=== PATIENT | female | born 1960 | race Caucasian/White ===

== ENCOUNTER 2023-10-30 05:48 | Inpatient (IN) ==
[2023-10-30 07:05] LABS: ABS Basophils 0.1 10^3/uL (0.0-0.1); ABS Lymphocytes 2.5 10^3/uL (1.0-4.8); ABS Monocytes 0.6 10^3/uL (0.0-0.9); ABS Nucleated RBC 0.01 10^3/ul; Eosinophil % 0.4 %; Hematocrit 41.5 % (35-45); Hemoglobin 14.2 g/dL (11.5-14.3); Lymphocyte % 22.7 %; Mean Corpuscular Hemoglobin 29.8 pg (27-33); Mean Corpuscular Hgb Conc 34.2 g/dL (31-36); Mean Corpuscular Volume 87.1 fL (80-97); Mean Platelet Volume 8.9 fL (7.5-11.2); Platelet Count 234 10^3/uL (150-450); Red Blood Count 4.76 10^6/uL (3.63-4.92); White Blood Count 11.2 10^3/uL (3.8-11.8)
[2023-10-30 08:05] LABS: Albumin 3.9 g/dL (3.2-5.2); Albumin/Globulin Ratio 1.4 (1-3); Calcium 9.1 mg/dL (8.6-10.3); Creatinine, Serum 0.92 mg/dL (0.51-0.95); Globulin 2.7 g/dL (2-4); Potassium 4.5 mmol/L (3.5-5.0); Total Bilirubin 0.4 mg/dL (0.2-1.0); Total Protein 6.6 g/dL (6.4-8.9); eGFR CKD-EPI 70.8 (>60)
[2023-10-30 08:08] LABS: ABS Basophils 0.2 10^3/uL (0.0-0.1); ABS Eosinophils 0.1 10^3/uL (0.0-0.5); ABS Lymphocytes 3.4 10^3/uL (1.0-4.8); ABS Monocytes 0.8 10^3/uL (0.0-0.9); ABS Neutrophils 8.3 10^3/uL (1.5-7.6); Eosinophil % 0.5 %; Hematocrit 43.7 % (35-45); Hemoglobin 14.9 g/dL (11.5-14.3); Lymphocyte % 26.6 %; Mean Corpuscular Hemoglobin 29.7 pg (27-33); Mean Corpuscular Hgb Conc 34.2 g/dL (31-36); Mean Platelet Volume 8.8 fL (7.5-11.2); Platelet Count 247 10^3/uL (150-450); Red Blood Count 5.03 10^6/uL (3.63-4.92); Red Cell Distribution Width 14.2 % (12-17); White Blood Count 12.8 10^3/uL (3.8-11.8)
[2023-10-30] MEDS: Heparin DRIP 25,000 UNITS BAG 25,000 UNITS/250 ML BAG IV SCH (08:08)
[2023-10-30] MEDS: Heparin 5000 UNITS/ML 1 mL VIAL IV SCH (08:10)
[2023-10-30 08:35] LABS: High Sensitivity Troponin 1 Hr 6603 pg/mL (<15)
[2023-10-30 08:59] LABS: Creatinine, Serum 0.86 mg/dL (0.51-0.95); eGFR CKD-EPI 76.8 (>60)
[2023-10-30 09:21] LABS: C Reactive Protein 24.06 mg/L (<8.01)
[2023-10-30] MEDS: Nitro 2% OINT (Nitroglycerin) 1 INCH/PAK TOPICAL ONE (09:53)
[2023-10-30] MEDS ORDERED: Sulfur Hexaflouride MICROSPHR 25 MG VIAL ONE (10:06)
[2023-10-30 10:17] LABS: Erythrocyte Sed Rate 20 mm/Hr (0-29)
[2023-10-30] MEDS ORDERED: Dextrose 50% Syringe 50 ml 25 GM/50 ML SYRINGE IV PUSH PRN ×3 (10:26→17:38)
[2023-10-30] MEDS ORDERED: Heparin 2 UNITS/ML 1000 mls 3,000 ML IV ONE (10:32)
[2023-10-30] MEDS ORDERED: Lidocaine 1% MPF 5 ML VIAL ONE ×2 (10:32→10:41)
[2023-10-30] MEDS ORDERED: Iohexol 350 (CONTRAST) 200 ML MDV IV ONE (10:32)
[2023-10-30] MEDS ORDERED: nitroGLYCERIN DRIP 25,000 MCG/250 ML BTL ONE (10:33)
[2023-10-30] MEDS ORDERED: niCARdipine 0.1MG/ML IVPREMIX 20 MG/200 ML BAG IV ONE (10:33)
[2023-10-30] MEDS ORDERED: Naloxone 0.4 mg VIAL 0.4 mg/ml 1 ml VIAL IV PUSH PRN (10:48)
[2023-10-30] MEDS ORDERED: Flumazenil 0.5 mg/5 ml 0.1 MG/ML 5 ml VIAL IV PRN (10:48)
[2023-10-30] MEDS ORDERED: fentaNYL 100 mcg/2 ml 50 MCG/ML VIAL ONE ×2 (11:03→11:36)
[2023-10-30] MEDS ORDERED: Midazolam 5 mg/5 ml VIAL 1 mg/ml 5 ml VIAL (5 mg) ONE (11:03)
[2023-10-30] MEDS ORDERED: Heparin 1,000 UNIT/ML 10 ml (10,000 UNITS) CATHLAB/DIALYSIS ONE (11:11)
[2023-10-30] MEDS ORDERED: Eptifibatide IV (Load dose) 2 MG/ML 10 ml VIAL ONE ×2 (11:51→12:09)
[2023-10-30] MEDS ORDERED: Iohexol 350 (CONTRAST) 100 ML PAK IV ONE ×2 (11:59→12:46)
[2023-10-30] MEDS: NS 0.9% 1000 ml BAG 1,000 ML IV SCH (13:55)
[2023-10-30] MEDS: fentaNYL 100 mcg/2 ml 50 MCG/ML VIAL IV SLOW PU ONE (14:54)
[2023-10-30] MEDS: Midazolam 10 mg/10 ml VIAL 1 mg/ml 10 ml VIAL (10 mg) IV SLOW PU ONE (14:54)
[2023-10-30] MEDS: Ondansetron 4 mg VIAL 2 MG/ML 2 ml VIAL IV PRN (19:56)
[2023-10-30] MEDS: diazePAM INJ CARPUJECT 5 MG/ML SYRINGE ONE (21:39)
[2023-10-31 04:47] LABS: ABS Basophils 0.1 10^3/uL (0.0-0.1); ABS Lymphocytes 2.6 10^3/uL (1.0-4.8); ABS Monocytes 0.9 10^3/uL (0.0-0.9); ABS Neutrophils 9.2 10^3/uL (1.5-7.6); ABS Nucleated RBC 0.01 10^3/ul; Eosinophil % 0.3 %; Hematocrit 39.5 % (35-45); Hemoglobin 13.5 g/dL (11.5-14.3); Mean Corpuscular Hemoglobin 29.7 pg (27-33); Mean Corpuscular Hgb Conc 34.1 g/dL (31-36); Mean Corpuscular Volume 87.1 fL (80-97); Mean Platelet Volume 8.8 fL (7.5-11.2); Platelet Count 243 10^3/uL (150-450); Red Blood Count 4.54 10^6/uL (3.63-4.92); Red Cell Distribution Width 14.1 % (12-17); White Blood Count 12.9 10^3/uL (3.8-11.8)
[2023-10-31 05:15] LABS: Albumin 3.7 g/dL (3.2-5.2); Albumin/Globulin Ratio 1.4 (1-3); Calcium 9.2 mg/dL (8.6-10.3); Creatinine, Serum 0.85 mg/dL (0.51-0.95); Globulin 2.6 g/dL (2-4); HDL Cholesterol 42.9 mg/dL; Magnesium 1.6 mg/dL (1.9-2.7); Phosphorus 5.5 mg/dL (2.5-5.0); Potassium 4.4 mmol/L (3.5-5.0); Total Protein 6.3 g/dL (6.4-8.9); eGFR CKD-EPI 77.9 (>60)
[2023-10-31] MEDS: Magnesium Sulfate 2 gm BAG 2 GM/50 ML BAG IVPB ONE ×2 (05:30→09:18)
[2023-10-31] MEDS: Magnesium Sulfate 2 gm BAG 2 GM/50 ML BAG ONE (05:32)
[2023-10-31 05:37] LABS: Total Bilirubin 0.9 mg/dL (0.2-1.0)
[2023-10-31] MEDS: Magnesium Sulf 4 GM/100 ML IV 4,000 MG/100 ML BAG IVPB ONE (08:35)
[2023-10-31] MEDS: Empagliflozin 25 MG TAB PO SCH (08:51)
[2023-10-31 10:09] LABS: Ferritin 150.5 ng/mL (11-307)
[2023-11-01 06:05] LABS: Albumin 3.6 g/dL (3.2-5.2); Albumin/Globulin Ratio 1.3 (1-3); Calcium 8.7 mg/dL (8.6-10.3); Creatinine, Serum 0.73 mg/dL (0.51-0.95); Globulin 2.7 g/dL (2-4); Phosphorus 4.4 mg/dL (2.5-5.0); Potassium 4.4 mmol/L (3.5-5.0); Total Bilirubin 0.8 mg/dL (0.2-1.0); Total Protein 6.3 g/dL (6.4-8.9); eGFR CKD-EPI 93.5 (>60)
[2023-11-01 07:02] LABS: ABS Eosinophils 0.1 10^3/uL (0.0-0.5); ABS Lymphocytes 2.2 10^3/uL (1.0-4.8); ABS Monocytes 0.6 10^3/uL (0.0-0.9); ABS Neutrophils 6.8 10^3/uL (1.5-7.6); ABS Nucleated RBC 0.01 10^3/ul; Hemoglobin 14.2 g/dL (11.5-14.3); Lymphocyte % 22.6 %; Mean Corpuscular Hemoglobin 29.6 pg (27-33); Mean Corpuscular Hgb Conc 33.8 g/dL (31-36); Mean Corpuscular Volume 87.6 fL (80-97); Mean Platelet Volume 9.4 fL (7.5-11.2); Nucleated Red Blood Cells % 0.1 %/100WBC (0.0-0.8); Platelet Count 242 10^3/uL (150-450); Red Cell Distribution Width 13.9 % (12-17); White Blood Count 9.7 10^3/uL (3.8-11.8)
[2023-11-01] MEDS: Enoxaparin 40 MG/0.4 ML SYR SUBCUT SCH (08:46)
[2023-11-01] MEDS ORDERED: Dextrose 50% Syringe 50 ml 25 GM/50 ML SYRINGE IV PUSH PRN ×2 (12:44→12:45)
[2023-11-02 04:49] LABS: ABS Basophils 0.1 10^3/uL (0.0-0.1); ABS Eosinophils 0.2 10^3/uL (0.0-0.5); ABS Lymphocytes 2.2 10^3/uL (1.0-4.8); ABS Monocytes 0.7 10^3/uL (0.0-0.9); ABS Neutrophils 7.4 10^3/uL (1.5-7.6); ABS Nucleated RBC 0.01 10^3/ul; Eosinophil % 1.7 %; Hematocrit 39.1 % (35-45); Hemoglobin 13.6 g/dL (11.5-14.3); Lymphocyte % 21.2 %; Mean Corpuscular Hgb Conc 34.6 g/dL (31-36); Mean Corpuscular Volume 86.7 fL (80-97); Nucleated Red Blood Cells % 0.1 %/100WBC (0.0-0.8); Platelet Count 242 10^3/uL (150-450); Red Blood Count 4.52 10^6/uL (3.63-4.92); Red Cell Distribution Width 14.3 % (12-17); White Blood Count 10.5 10^3/uL (3.8-11.8)
[2023-11-02 05:24] LABS: Calcium 8.5 mg/dL (8.6-10.3); Creatinine, Serum 0.86 mg/dL (0.51-0.95); Magnesium 1.8 mg/dL (1.9-2.7); Potassium 4.4 mmol/L (3.5-5.0); eGFR CKD-EPI 76.8 (>60)
[2023-11-02] MEDS: Magnesium Sulfate IV 1GM/100ML 1 GM/100 ML BAG IV ONE (06:18)
[2023-11-02] MEDS: Polyethylene Glycol 3350 17 GM PACKET PO PRN (20:04)
[2023-11-02] MEDS: Senna TAB 8.6 mg TAB PO PRN (20:05)
[2023-11-02] MEDS: NS 0.9% 1000 ml BAG 1,000 ML IV SCH (23:54)
[2023-11-03 05:11] LABS: ABS Basophils 0.1 10^3/uL (0.0-0.1); ABS Eosinophils 0.2 10^3/uL (0.0-0.5); ABS Lymphocytes 2.4 10^3/uL (1.0-4.8); ABS Monocytes 0.6 10^3/uL (0.0-0.9); ABS Neutrophils 6.8 10^3/uL (1.5-7.6); ABS Nucleated RBC 0.01 10^3/ul; Eosinophil % 1.7 %; Hemoglobin 13.7 g/dL (11.5-14.3); Mean Corpuscular Hemoglobin 29.7 pg (27-33); Mean Corpuscular Hgb Conc 34.2 g/dL (31-36); Mean Platelet Volume 8.7 fL (7.5-11.2); Nucleated Red Blood Cells % 0.1 %/100WBC (0.0-0.8); Platelet Count 270 10^3/uL (150-450); Red Cell Distribution Width 14.4 % (12-17)
[2023-11-03 06:06] LABS: Calcium 8.6 mg/dL (8.6-10.3); Creatinine, Serum 0.89 mg/dL (0.51-0.95); Magnesium 1.9 mg/dL (1.9-2.7); Potassium 4.6 mmol/L (3.5-5.0); eGFR CKD-EPI 73.7 (>60)
[2023-11-03] MEDS: fentaNYL 100 mcg/2 ml 50 MCG/ML VIAL IV SLOW PU ONE (13:40)
[2023-11-03] MEDS: Midazolam 10 mg/10 ml VIAL 1 mg/ml 10 ml VIAL (10 mg) IV SLOW PU ONE (13:40)
[2023-11-03] MEDS ORDERED: Midazolam 5 mg/5 ml VIAL 1 mg/ml 5 ml VIAL (5 mg) ONE (14:32)
[2023-11-03] MEDS ORDERED: fentaNYL 100 mcg/2 ml 50 MCG/ML VIAL ONE (14:32)
[2023-11-03] MEDS ORDERED: Lidocaine 1% VIAL 10 MG/ML 30 ML VIAL ONE (14:32)
[2023-11-03] MEDS: ceFAZolin 2 GM in NS PREMIX 2 GM/100 ML BAG IVPB ONE (15:57)
[2023-11-03] MEDS: ceFAZolin SYR FLUSH 1 GM/10 ML for pocket flush (cardiology) FLUSH ONE (15:58)
[2023-11-03] MEDS: oxyCODONE/Acetamin 5/325 mg TAB PO PRN (16:36)
[2023-11-03] MEDS: ceFAZolin VIAL 1 GM in NS 0.9% 50 ML 50 ML IVPB SCH (22:39)
[2023-11-04 04:21] LABS: ABS Basophils 0.1 10^3/uL (0.0-0.1); ABS Eosinophils 0.1 10^3/uL (0.0-0.5); ABS Monocytes 0.7 10^3/uL (0.0-0.9); ABS Neutrophils 6.7 10^3/uL (1.5-7.6); ABS Nucleated RBC 0.01 10^3/ul; Eosinophil % 0.8 %; Hematocrit 36.2 % (35-45); Hemoglobin 12.3 g/dL (11.5-14.3); Lymphocyte % 21.2 %; Mean Corpuscular Hemoglobin 29.5 pg (27-33); Mean Corpuscular Hgb Conc 33.8 g/dL (31-36); Mean Corpuscular Volume 87.4 fL (80-97); Mean Platelet Volume 8.6 fL (7.5-11.2); Nucleated Red Blood Cells % 0.1 %/100WBC (0.0-0.8); Platelet Count 252 10^3/uL (150-450); Red Blood Count 4.15 10^6/uL (3.63-4.92); Red Cell Distribution Width 13.7 % (12-17); White Blood Count 9.5 10^3/uL (3.8-11.8)
[2023-11-04 05:37] LABS: Creatinine, Serum 0.7 mg/dL (0.51-0.95); Magnesium 1.8 mg/dL (1.9-2.7); Phosphorus 4.5 mg/dL (2.5-5.0); Potassium 4.6 mmol/L (3.5-5.0); eGFR CKD-EPI 98.3 (>60)
[2023-11-04] MEDS: Magnesium Sulfate 2 gm BAG 2 GM/50 ML BAG IVPB ONE (09:30)
[2023-11-04] MEDS ORDERED: Acetaminop/Codeine 300mg/30mg TAB PO PRN (12:05)
[2023-11-05] MEDS: Acetaminop/Codeine 300mg/30mg TAB PO PRN (01:09)
[2023-11-05 06:07] LABS: ABS Basophils 0.1 10^3/uL (0.0-0.1); ABS Eosinophils 0.2 10^3/uL (0.0-0.5); ABS Lymphocytes 2.1 10^3/uL (1.0-4.8); ABS Monocytes 0.7 10^3/uL (0.0-0.9); ABS Neutrophils 6.9 10^3/uL (1.5-7.6); ABS Nucleated RBC 0.01 10^3/ul; Eosinophil % 1.7 %; Hematocrit 36.8 % (35-45); Hemoglobin 12.3 g/dL (11.5-14.3); Lymphocyte % 21.1 %; Mean Corpuscular Hemoglobin 29.4 pg (27-33); Mean Corpuscular Hgb Conc 33.4 g/dL (31-36); Mean Corpuscular Volume 87.9 fL (80-97); Mean Platelet Volume 8.8 fL (7.5-11.2); Nucleated Red Blood Cells % 0.1 %/100WBC (0.0-0.8); Platelet Count 237 10^3/uL (150-450); Red Blood Count 4.18 10^6/uL (3.63-4.92); Red Cell Distribution Width 14.1 % (12-17); White Blood Count 9.9 10^3/uL (3.8-11.8)
[2023-11-05 09:59] LABS: Calcium 8.6 mg/dL (8.6-10.3); Creatinine, Serum 0.74 mg/dL (0.51-0.95); Potassium 4.5 mmol/L (3.5-5.0)
[2023-11-05 10:14] VITALS: BP 93/65
[2023-11-05] MEDS: COVID VAC 23-24(12+)(Moderna) SYR 0.5 ML IM ONE (13:46)
[2023-11-05] MEDS: Influenza vaccine *QUAD* *2023-24* 0.5 ML SYRINGE IM ONE (13:48)
== END 2023-11-05 13:45 | disposition home or self-care (01) | DRG 174 ==
LOC: ED 05:48 → EDHOLD 10:24 → AA 10:57 → ICU 10:58 → MEDTELE 11-04 06:35
PROVIDERS: ADMIT Internal Medicine Pulmonary Disease; ATTEND Internal Medicine